=== PATIENT | female | born 1960 | race Caucasian/White ===

== ENCOUNTER 2022-04-08 08:14 | Emergency (ER) | payer OTHER, SELFPAY ==
[2022-04-08 08:16] VITALS: BP 139/73; PULSE 108; RESP 17; TEMP 37; O2SAT 99; BMI 23.3
--- NOTE | 2022-04-08 08:59 | EDS_ITS ---
HPI History of Present Illness Chief Complaint: Headache Informant: patient Onset/Context/Timing Onset: Days (3-4) Context: Gradual Timing: Continuous Quality -Headache: Positive for Similar Prior Headaches and Other (Pressure) Location: Generalized Worsened by: Laying flat, coughing, vomiting, noises Relieved by: Nothing Associated Symptoms/Injury Associated Symptoms: Positive for Nausea, Vomiting and Photophobia; Negative for Fever, Sore Throat, Sinus Pressure, Numbness, Tingling, Preceding Aura, Visual Changes, Blurred Vision or Visual Loss Narrative Narrative: Patient presents with headache that has been getting worse over the last 3 to 4 days. Patient states she has a AUTO RENTAL CLERK shunt in place. Patient states her headache feels like there is increasing pressure in her head. Patient states it is generalized. Patient states it is worse with laying flat, coughing, vomiting, and loud noises. Patient also admits to some mild photophobia. Patient admits to some nausea and vomiting. Patient denies any visual changes. Patient admits to some subjective chills but denies any fevers. Patient states that her neurosurgeon (Dr. Bramblia) has retired and she no longer has a neurosurgeon. Patient was seeing her neurosurgeon at [facility] in [place]. [facility] Medical History (Updated 04/08/22 @ 11:[address] Xavier Quintero DO) Asthma Breast cancer Cuca's thyroiditis Hypertension Home Medications levothyroxine 100 mcg tablet tab 04/08/22 [History Last Taken Unknown] levothyroxine 88 mcg tablet tab 04/08/22 [History Last Taken Unknown] lisinopril 10 mg tablet tab 04/08/22 [History Last Taken Unknown] montelukast 10 mg tablet tab 04/08/22 [History Last Taken Unknown] Allergy/AdvReac Type Severity Reaction Status Date / Time adhesive tape Allergy Rash Verified 04/08/22 08:15 Sulfa (Sulfonamide Allergy Rash Verified 04/08/22 08:15 Antibiotics) Surgical History (Updated 04/08/22 @ 11:[address] Xavier Quintero DO) History of hysterectomy S/P AUTO RENTAL CLERK shunt Social History Smoking Status: Never smoker ROS ROS ED Constitutional Constitutional ED: Reports chills and subjective; Denies fever(s) Eyes Eyes: Denies blurry vision or change in vision ENT ENT ED: Denies rhinorrhea or sore throat Cardiovascular Cardiovascular: Denies chest pain or palpitations Respiratory/Chest Respiratory/Chest: Denies cough or dyspnea Gastrointestinal Gastrointestinal: Reports nausea and vomiting Genitourinary Genitourinary ED: Denies dysuria or hematuria Musculoskeletal Musculoskeletal: Reports neck pain; Denies back pain Integumentary Denies abscess or rash Neurologic Neurologic: Reports headache(s); Denies weakness Allergic/Immunologic Allergic/Immunologic ED: Denies mouth swelling or urticaria EXAM Physical Exam Const Vital Signs: 04/08/22 08:16 04/08/22 10:04 04/08/22 11:50 Temperature 98.6 F Temperature Source Temporal Pulse Rate 108 H 95 101 H Respiratory Rate 17 14 14 Blood Pressure 139/73 H 132/70 H 125/70 H Blood Pressure Mean 95 90 88 Pulse Ox 99 97 98 Oxygen Delivery Method Room Air Room Air Room Air Positive well nourished and well developed General Appearance ED: well developed and NAD HEENT Reports moist mucous membranes atraumatic Eyes PERRL and EOMs intact bilaterally Neck supple and no JVD Resp normal respiratory effort and clear to auscultation bilaterally Cardio regular rate, regular rhythm and no murmurs GI normal to inspection, nondistended, normoactive bowel sounds and non-tender Palpation: soft Extremity normal to inspection General Extremety ED: Negative for edema or tenderness General Extremity: Negative for edema Neuro oriented x3, CN's II-XII intact bilaterally and no sensory deficits noted Sensorium / Orientation: alert Motor Exam: strength 5/5 throughout Psych mental status grossly normal Skin no rashes or lesions noted MDM MDM MDM Narrative Medical decision making narrative: CT scan of the brain was obtained. There is no acute intracranial abnormality. AUTO RENTAL CLERK shunt is in place. Ventricles are not dilated. This was interpreted by the radiologist and reviewed by myself. Patient was given IV fluids, morphine, and Zofran initially. Patient states she still has a headache after this. Patient was given Reglan and Benadryl. CBC was within normal limits. PT with INR and PTT were normal. Comprehensive metabolic profile was essentially within normal limits. COVID-19 rapid antigen was obtained and was negative. Urinalysis does not show any evidence of urinary tract infection. Patient is feeling somewhat better on reevaluation. Patient states her headache is still worse with movement. Patient was advised of her findings. Patient was instructed to rest in a dark quiet room. Patient was instructed to drink plenty of fluids. Patient was instructed to follow-up with her primary care physician in 5 to 7 days. Patient was also instructed to follow-up with a neurosurgeon in 1 to 2 weeks to establish care with a new neurosurgeon. Patient understands and is agreeable with the plan. All questions were answered. Lab Data Attestation: I reviewed the patient's lab results. Labs: Laboratory Results - last 24 hr 04/08/22 04/08/22 04/08/22 08:28 08:28 08:28 WBC 7.7 RBC 4.54 Hgb 14.1 Hct 42.9 MCV 94.5 MCH 31.1 MCHC 32.9 RDW Std Deviation 43.9 RDW Coeff of Julien 12.7 Plt Count 224 MPV 10.5 Immature Gran % (Auto) 0.400 Neut % (Auto) 85.9 H Lymph % (Auto) 7.8 L [place] % (Auto) 5.3 Eos % (Auto) 0.1 Baso % (Auto) 0.5 Absolute Neuts (auto) 6.6 Absolute Lymphs (auto) 0.60 L Nucleated RBC % 0 PT 13.2 INR 1.0 APTT 25.4 Sodium 136 Potassium 3.9 Chloride 103 Carbon Dioxide 27.0 Anion Gap 6 BUN 10 Creatinine 0.82 Estim Creat Clear Calc 62.21 Est GFR (MDRD) Af Amer 91 Est GFR (MDRD) Non-Af 75 BUN/Creatinine Ratio 12.2 Glucose 119 H Calcium 9.4 Total Bilirubin 0.50 AST 46 H ALT 84 H Alkaline Phosphatase 114 Total Protein 7.5 Albumin 4.0 Globulin 3.5 Albumin/Globulin Ratio 1.1 Urine Color Urine Clarity Urine pH Ur Specific [place] Urine Protein Urine Glucose (UA) Urine Ketones Urine Occult Blood Urine Nitrite Urine Bilirubin Urine Urobilinogen Ur Leukocyte Esterase Urine RBC Urine WBC Ur Squamous Epith Cells Urine Bacteria Urine Mucus 04/08/22 10:45 WBC RBC Hgb Hct MCV MCH MCHC RDW Std Deviation RDW Coeff of Julien Plt Count MPV Immature Gran % (Auto) Neut % (Auto) Lymph % (Auto) [place] % (Auto) Eos % (Auto) Baso % (Auto) Absolute Neuts (auto) Absolute Lymphs (auto) Nucleated RBC % PT INR APTT Sodium Potassium Chloride Carbon Dioxide Anion Gap BUN Creatinine Estim Creat Clear Calc Est GFR (MDRD) Af Amer Est GFR (MDRD) Non-Af BUN/Creatinine Ratio Glucose Calcium Total Bilirubin AST ALT Alkaline Phosphatase Total Protein Albumin Globulin Albumin/Globulin Ratio Urine Color Straw Urine Clarity Clear Urine pH 6.0 Ur Specific [place] 1.010 Urine Protein Negative Urine Glucose (UA) Normal Urine Ketones 15 H Urine Occult Blood 25 H Urine Nitrite Negative Urine Bilirubin Negative Urine Urobilinogen Normal Ur Leukocyte Esterase Negative Urine RBC 0 SEEN Urine WBC 0 SEEN Ur Squamous Epith Cells 0-5 SEEN Urine Bacteria 0 SEEN Urine Mucus 0 SEEN Radiography Diagnostic Testing: Clinical Impression(s) from Imaging Studies Brain CT 04/08/22 09:06 IMPRESSION: Ventriculoperitoneal shunt tube in situ with the tip in the anterior horn of the left lateral ventricle. No other abnormality is seen. Electronically Signed: Gavin Floyd MD at 9:40 EDT , Discharge Plan Triage Chief Complaint: Headache ED Provider: Xavier Quintero Dx/Rx/DC Orders Clinical Impression: Headache, S/P AUTO RENTAL CLERK shunt Instructions: ED Headache Unspecified Prescriptions: No Action levothyroxine 100 mcg tablet Label Comments: Take 1 Tablet BY MOUTH once daily- Monday and Monday levothyroxine 88 mcg tablet Label Comments: Take 1 Tablet BY MOUTH once daily on , MONDAY, MONDAY, MONDAY, MONDAY lisinopril 10 mg tablet Label Comments: TAKE 1 TABLET BY MOUTH ONCE DAILY montelukast 10 mg tablet Label Comments: TAKE 1 TABLET BY MOUTH ONCE DAILY Primary Care Provider: Alison Kim NP Referrals: Pee Pedersen MD [NON-STAFF] - 1-2 Weeks Alison Kim NP, PHOTOGRAPHIC PROCESS SCREEN [employer]KER[employer] [Primary Care Provider] - 3-5 Days Disposition Disposition: Home, Self Care
--- NOTE | 2022-04-08 09:06 | CT_ITS ---
STUDY: CT BRAIN WITHOUT CONTRAST REASON FOR EXAM: Female, 61 years old. 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 Individualized dose optimization techniques were used for this CT. COMPARISON: No relevant priors. FINDINGS: A right-sided ventriculoperitoneal shunt is seen with the tip in the anterior horn of the left lateral ventricle. Normal soft tissue structures. Normal calvarium. Normal size ventricles and extra-axial spaces for the patient''s age. Normal white matter tracts of the cerebral hemispheres. Normal basal ganglia and thalami. Normal brainstem. Normal cerebellum. There is no intracranial hemorrhage. There are no findings of an acute ischemic infarction. Minimal mucosal thickening at the base of the maxillary sinuses bilaterally. CT/Brain/Head without Contrast IMPRESSION: Ventriculoperitoneal shunt tube in situ with the tip in the anterior horn of the left lateral ventricle. No other abnormality is seen. Electronically Signed: Gavin Floyd MD at 9:40 EDT ,
[2022-04-08] MEDS: Morphine 4 MG/ML Syringe IV (09:22)
[2022-04-08] MEDS: Ondansetron 4 MG/2 ML Vial IV (09:22)
[2022-04-08] MEDS: 0.9% Normal Saline 1,000 ML 1000 ML IV (09:22)
[2022-04-08 09:23] LABS: Absolute Neutrophil Count 6.6 X10^3/uL (2.0-7.7); Basophil# 0.04 X10^3/uL; Basophil% 0.5 % (0-1); Eosinophil# 0.01 X10^3/uL; Eosinophils% 0.1 % (0-5); Hematocrit 42.9 % (37-47); Hemoglobin 14.1 g/dL (12.0-15.0); Lymphocyte % 7.8 % (19-41); Mean Corp Hgb Conc 32.9 g/dL (32-36); Mean Corpuscular Hgb 31.1 pg (27.0-32.0); Mean Corpuscular Volume 94.5 fL (81-99); Mean Platelet Vol. 10.5 fl (6.2-12.0); Monocyte# 0.41 X10^3/uL; Monocyte% 5.3 % (0-10); NRBC Flagged by Analyzer 0 % (0-5); Neutrophil # 6.62 X10^3/uL (2.7-7.7); Neutrophil % 85.9 % (47-70); POSITIVE DIFFERENTIAL YES; Platelet Count 224 K/mm3 (150-450); RBC Distribution Width CV 12.7 % (11.6-14.6); RBC Distribution Width SD 43.9 fl (35.1-43.9); Red Blood Count 4.54 M/mm3 (4.2-5.4); White Blood Count 7.7 K/mm3 (4.4-11.0)
[2022-04-08 09:33] LABS: Partial Thromboplast Time 25.4 Seconds (24.1-36.2); Prothrombin Time (Protime)PT. 13.2 SECONDS (11.7-14.9)
[2022-04-08 09:40] LABS: ALB/GLOB Ratio 1.1 RATIO (0.9-2.4); AST(SGOT) 46 U/L (15-37); Alanine Aminotransfer ALT/SGPT 84 U/L (13-56); Alkaline Phosphatase 114 U/L (45-117); Anion Gap 6 (5-15); BUN 10 mg/dL (7-18); BUN/Creat Ratio 12.2 RATIO (10-20); Calcium,Total 9.4 mg/dL (8.5-10.1); Chloride 103 mmol/L (98-107); Creatinine, Serum 0.82 mg/dL (0.55-1.02); EST Glomerular Filtration Rate 75 mL/min (>60); Est Glom Filt Rate - Afr Amer 91 mL/min (>60); Estimated Creatinine Clearance 62.21 ml/min; Globulin 3.5 g/dL (2.2-4.2); Glucose 119 mg/dL (74-106); Potassium 3.9 mmol/L (3.5-5.1); Protein, Total 7.5 g/dL (6.4-8.2); Sodium Level 136 mmol/L (136-145)
[2022-04-08 09:45] LABS: Differential Indicated SCAN CRITERIA MET
[2022-04-08 10:04] VITALS: BP 132/70; PULSE 95; RESP 14; O2SAT 97
[2022-04-08] MEDS: DiphenhydrAMINE 50 MG/ML Syringe 25 MG IV (10:44)
[2022-04-08] MEDS: Metoclopramide 10 MG/2 ML Vial IV (10:44)
[2022-04-08 10:53] LABS: Bacteria 0 SEEN /hpf (None Seen); Mucous, Urine 0 SEEN /hpf (<or=2+); Red Blood Cells-Urine 0 SEEN /hpf (0-5); White Blood Cells 0 SEEN /hpf (0-5)
[2022-04-08 10:56] LABS: Glucose, Dipstick Normal (Normal); Ketone-Dipstick 15 mg/dl (Negative); Leukocyte Esterase-Dipstick Negative /ul (Negative); Nitrite-Dipstick Negative (Negative); Occult Blood-Urine 25 /ul (Negative); Protein-Dipstick Negative (Negative); Urine Bilirubin Dipstick Negative (Negative); Urine Urobilinogen Normal (Normal)
[2022-04-08 11:06] LABS: Color, Urine Straw (Yellow); Urine Clarity Clear (Clear)
[2022-04-08 11:40] LABS: Squamous Epithelial Cells - UA 0-5 SEEN /hpf (5-10)
[2022-04-08 11:50] VITALS: BP 125/70; PULSE 101; RESP 14; O2SAT 98
== END 2022-04-08 12:12 | disposition home or self-care (01) ==
PROVIDERS: Emergency Provider Emergency Medicine; PCP Nurse Practitioner Family; Visit Provider Emergency Medicine
DX: R51.9 Headache, unspecified (principal); R11.2 Nausea with vomiting, unspecified; I10 Essential (primary) hypertension; Z98.2 Presence of cerebrospinal fluid drainage device; Z85.3 Personal history of malignant neoplasm of breast; J45.909 Unspecified asthma, uncomplicated; E06.3 Autoimmune thyroiditis; Z79.899 Other long term (current) drug therapy
CPT/HCPCS: 70450; 80053; 81001; 85025; 85610; 85730; 87040; 87811; 96361; 96374; 96375; 99283; J7030; A4216; J2405

== ENCOUNTER → 2023-03-01 | Outpatient (CLI) | payer OTHER, SELFPAY ==
[2023-03-01 10:47] LABS: Hematocrit 43.2 % (37-47); Hemoglobin 13.8 g/dL (12.0-15.0); Mean Corp Hgb Conc 31.9 g/dL (32-36); Mean Corpuscular Hgb 31.3 pg (27.0-32.0); Mean Platelet Vol. 11.1 fl (6.2-12.0); Platelet Count 267 K/mm3 (150-450); RBC Distribution Width CV 12.7 % (11.6-14.6); RBC Distribution Width SD 45.8 fl (35.1-43.9); Red Blood Count 4.41 M/mm3 (4.2-5.4); White Blood Count 6.9 K/mm3 (4.4-11.0)
[2023-03-01 11:36] LABS: ALB/GLOB Ratio 1.2 RATIO (0.9-2.4); AST(SGOT) 26 U/L (15-37); Alanine Aminotransfer ALT/SGPT 42 U/L (13-56); Albumin, Serum 3.9 g/dL (3.2-5.0); Alkaline Phosphatase 95 U/L (45-117); Anion Gap 4 (5-15); BUN 20 mg/dL (7-18); BUN/Creat Ratio 24.5 RATIO (10-20); Calcium,Total 9.3 mg/dL (8.5-10.1); Chloride 107 mmol/L (98-107); Creatinine, Serum 0.82 mg/dL (0.55-1.02); EST Glomerular Filtration Rate 75 mL/min (>60); Est Glom Filt Rate - Afr Amer 91 mL/min (>60); Globulin 3.2 g/dL (2.2-4.2); Glucose 97 mg/dL (74-106); Potassium 4.7 mmol/L (3.5-5.1); Protein, Total 7.1 g/dL (6.4-8.2); Sodium Level 139 mmol/L (136-145); T4 Free Direct 0.97 ng/dL (0.76-1.46); Thyroid Stim Hormone (TSH) 0.51 uIU/mL (0.358-3.74)
[2023-03-02 07:27] LABS: Cholesterol 313 mg/dL (200); High Density Lipoprotein 53 mg/dL; Triglycerides 277 mg/dL; Very Low Density Lipoprotein 55 mg/dL (5-40)
== END | disposition home or self-care (01) ==
LOC: LAB 09:26
PROVIDERS: PCP Nurse Practitioner Family; Visit Provider Nurse Practitioner Family
DX: Z00.00 Encounter for general adult medical examination without abnormal findings (principal); E03.2 Hypothyroidism due to medicaments and other exogenous substances
CPT/HCPCS: 36415; 80053; 80061; 84439; 84443; 85027

== ENCOUNTER → 2023-06-01 | Outpatient (CLI) | payer OTHER, SELFPAY ==
[2023-06-01 09:46] LABS: Hematocrit 41.8 % (37-47); Hemoglobin 13.6 g/dL (12.0-15.0); Mean Corp Hgb Conc 32.5 g/dL (32-36); Mean Corpuscular Hgb 31.8 pg (27.0-32.0); Mean Corpuscular Volume 97.7 fL (81-99); Platelet Count 270 K/mm3 (150-450); RBC Distribution Width CV 12.7 % (11.6-14.6); RBC Distribution Width SD 46.5 fl (35.1-43.9); Red Blood Count 4.28 M/mm3 (4.2-5.4); White Blood Count 6.4 K/mm3 (4.4-11.0)
[2023-06-01 11:01] LABS: ALB/GLOB Ratio 1.4 RATIO (0.9-2.4); AST(SGOT) 17 U/L (15-37); Alanine Aminotransfer ALT/SGPT 36 U/L (13-56); Albumin, Serum 4.3 g/dL (3.2-5.0); Alkaline Phosphatase 89 U/L (45-117); Anion Gap 5 (5-15); BUN 15 mg/dL (7-18); BUN/Creat Ratio 17.8 RATIO (10-20); Calcium,Total 9.5 mg/dL (8.5-10.1); Chloride 107 mmol/L (98-107); Cholesterol 196 mg/dL (200); Creatinine, Serum 0.84 mg/dL (0.55-1.02); EST Glomerular Filtration Rate 73 mL/min (>60); Est Glom Filt Rate - Afr Amer 88 mL/min (>60); Globulin 3.1 g/dL (2.2-4.2); Glucose 103 mg/dL (74-106); High Density Lipoprotein 64 mg/dL; Potassium 4.6 mmol/L (3.5-5.1); Protein, Total 7.4 g/dL (6.4-8.2); Sodium Level 140 mmol/L (136-145); T4 Free Direct 1.17 ng/dL (0.76-1.46); Thyroid Stim Hormone (TSH) 0.15 uIU/mL (0.358-3.74); Triglycerides 99 mg/dL; Very Low Density Lipoprotein 20 mg/dL (5-40)
== END | disposition home or self-care (01) ==
LOC: LAB 08:24
PROVIDERS: PCP Nurse Practitioner Family; Referring Provider Nurse Practitioner Family; Visit Provider Nurse Practitioner Family
DX: E78.5 Hyperlipidemia, unspecified (principal); E03.2 Hypothyroidism due to medicaments and other exogenous substances; R06.02 Shortness of breath; R10.9 Unspecified abdominal pain; R35.0 Frequency of micturition
CPT/HCPCS: 36415; 80053; 80061; 84439; 84443; 85027; 87086

== ENCOUNTER → 2023-06-14 | Outpatient (CLI) | payer OTHER, SELFPAY ==
--- NOTE | 2023-06-14 10:39 | ECHOD_ITS ---
Reason For Study: SOB Procedure This was a 2D Doppler, Color Flow transthoracic echocardiogram. Exam performed in department. Left Ventricle Normal LV size. Left ventricular systolic function is normal. The estimated ejection fraction is 60 %. Stage 1 diastolic dysfunction. No regional wall motion abnormalities noted. Right Ventricle Normal RV size. Normal systolic function. Atria Normal left atrium. Normal right atrium. Mitral Valve Normal mitral valve. Tricuspid Valve Normal tricuspid valve. Aortic Valve Normal aortic valve. Trisinus/trileaflet aortic valve. Pulmonic Valve Normal pulmonic valve. Great Vessels Normal aortic root. The pulmonary artery is normal size. Inferior vena cava collapse with respiration. Pericardium/Pleural No pericardial effusion. MMode/2D Measurements & Calculations LVIDd: 3.5 cm IVSd: 1.0 cm LAV(MOD-bp): 29.6 ml LVIDs: 2.7 cm LVPWd: 1.1 cm LAV(MOD-bp) Indexed: 17.6 ml/m2 RVDd: 2.6 cm FS: 22.1 % LAV(MOD-sp2): 28.3 ml LAV(MOD-sp4): 27.9 ml SV(MOD-sp4): 30.8 ml SV(sp4-el): 33.6 ml LVAd ap4: 21.5 cm2 LVLd ap4: 7.0 cm EDV(MOD-sp4): 53.5 ml EDV(sp4-el): 56.2 ml LVAs ap4: 12.6 cm2 LVLs ap4: 5.9 cm ESV(MOD-sp4): 22.7 ml ESV(sp4-el): 22.6 ml EF(MOD-sp4): 57.6 % EF(sp4-el): 59.7 % LA A4 area: 11.8 cm2 LA dimension(2D): 2.8 cm RA A4 area: 6.0 cm2 TAPSE: 1.9 cm Time Measurements MV dec time: 0.22 sec Doppler Measurements & Calculations MV E max javan: 67.4 cm/sec Lat Peak E' Javan: 8.5 cm/sec Med Peak E' Javan: 6.0 cm/sec MV A max javan: 69.7 cm/sec E/E' lat: 8.0 E/E' med: 11.3 MV E/A: 0.97 MV V2 max: 76.0 cm/sec Ao V2 max: 176.5 cm/sec MV max P.3 mmHg MV dec slope: 317.7 cm/sec2 Ao max P.5 mmHg MV V2 mean: 54.1 cm/sec Ao V2 mean: 112.5 cm/sec MV mean P.3 mmHg Ao mean P.8 mmHg MV V2 VTI: 23.7 cm Ao V2 VTI: 35.5 cm AV (velocity ratio): 0.70 LV V1 max: 120.7 cm/sec PA V2 max: 114.2 cm/sec LV V1 max P.8 mmHg PA V2 mean: 75.5 cm/sec LV V1 mean P.4 mmHg LV V1 mean: 87.8 cm/sec LV V1 VTI: 25.0 cm ECHO/Echo Complete Interpretation Summary Normal LV size. Left ventricular systolic function is normal. The estimated ejection fraction is 60 %. Stage 1 diastolic dysfunction. Structurally normal valves. Ordering Physician: Alison Kim Referring Physician: Alison Kim Performed By: Bonnie King RCS
--- NOTE | 2023-06-14 10:40 | EKG12_ITS ---
Test Reason : TVANSCYOC Blood Pressure : / mmHG Vent. Rate : 072 BPM Atrial Rate : 072 BPM P-R Int : 158 ms QRS Dur : 076 ms QT Int : 376 ms P-R-T Axes : 064 063 053 degrees QTc Int : 411 ms Normal sinus rhythm Normal ECG Confirmed by SOPHIE MCDERMOTT, SETH ([id number]), editor continuity and script MANUELITO ORTIZ ([id number]) on 06/16/2023 2:38:31 PM Referred By: Alison Kim Confirmed By:SETH BARRIOS MD
--- NOTE | 2023-06-14 19:12 | STRESSREP ---
Stress Test Report Exercise stress test. 62-year-old lady with a history of chest pain Stress protocol: Resting EKG demonstrates normal sinus rhythm with a rate of 72 bpm resting blood pressure is 122/72 mmHg. The patient exercised according to the regular Vinayak protocol for a total duration of 9 minutes and 30 seconds attaining a maximum heart rate of 169 bpm which was 106% of maximum predicted heart rate; the maximum workload was 11.7 metabolic equivalents. At rest there were no ST or T wave changes noted to suggest ischemia and at peak exercise upsloping ST changes only were noted which did not meet the criteria for ischemia. No clinical angina was noted the test was terminated due to the target heart rate being achieved/fatigue. The peak blood pressure was 182/68 mmHg. Rate-pressure product was 30,200. Conclusion: Normal exercise stress test with no EKG criteria or arrhythmias noted at a high workload. No angina present
== END | disposition home or self-care (01) ==
LOC: PSN 10:32
PROVIDERS: PCP Nurse Practitioner Family; Referring Provider Nurse Practitioner Family; Visit Provider Nurse Practitioner Family
DX: R01.1 Cardiac murmur, unspecified (principal); R06.02 Shortness of breath; R07.9 Chest pain, unspecified; I10 Essential (primary) hypertension; R53.83 Other fatigue; E78.5 Hyperlipidemia, unspecified; E03.2 Hypothyroidism due to medicaments and other exogenous substances; Z85.3 Personal history of malignant neoplasm of breast; R31.29 Other microscopic hematuria; R35.0 Frequency of micturition
CPT/HCPCS: 93005; 93017; 93306

== ENCOUNTER → 2023-06-15 | Outpatient (CLI) | payer OTHER, SELFPAY ==
--- NOTE | 2023-06-15 14:22 | CT_ITS ---
STUDY: CT ABDOMEN AND PELVIS WITH CONTRAST REASON FOR EXAM: Female, 62 years old. R FLANK PAIN RADIATION DOSAGE (If Supplied By Facility): CTDIvol = ( 10.92 ) mGy, DLP = ( 450.80 ) mGycm TECHNIQUE: Oral and intravenous injection of 100mL Isovue-300 was administered. Transaxial images were obtained from the dome of the diaphragm to the symphysis pubis. Multiplanar coronal and sagittal images were reformatted. Individualized Dose Optimization Techniques Were Used For This CT. COMPARISON: No relevant prior comparison study available FINDINGS: The visualized lung bases are unremarkable. The visualized portions of the heart are within normal limits. Catheter extending from the anterior lower chest to the right side of the abdominal cavity likely due to ventriculoperitoneal shunt not adequately evaluated on this exam. There is another similar catheter on the left side of the lower abdomen not definitely connected with the first catheter. Normal liver. Normal gallbladder and extrahepatic biliary system. Normal spleen. Normal pancreas. Normal bilateral adrenal glands. 6 mm simple cyst in the lower pole of the right kidney. No evidence of hydronephrosis. Normal visualized stomach. Normal in caliber small bowel loops. Fecal retention. The cecum and proximal ascending colon is redundant. The appendix appears to be sure without inflammatory changes. No evidence of abdominal aortic aneurysm. No retroperitoneal adenopathy. Normal urinary bladder. Normal abdominal wall. Degenerative changes at the level of L4-L5. CT/Abdomen/Pelvis WITH Contrast IMPRESSION: 1. No evidence of urinary tract stones or hydronephrosis. 2. No focal acute inflammatory process. 3. Probable ventriculoperitoneal shunt extending to the right side of the abdomen with second catheter on the left side of the lower abdomen. The 2 catheters are not definitely connected. Discontinuity of the shunt cannot be excluded. Electronically Signed: Rico Reaves MD at 15:15 EDT ,
== END | disposition home or self-care (01) ==
LOC: CT 14:07
PROVIDERS: PCP Nurse Practitioner Family; Referring Provider Nurse Practitioner Family; Visit Provider Nurse Practitioner Family
DX: R39.15 Urgency of urination (principal); R10.9 Unspecified abdominal pain; R07.9 Chest pain, unspecified; R35.0 Frequency of micturition; R53.83 Other fatigue; Z85.3 Personal history of malignant neoplasm of breast
CPT/HCPCS: 74177; Q9967

== ENCOUNTER → 2023-06-29 | Outpatient (CLI) | payer OTHER, SELFPAY ==
--- NOTE | 2023-06-29 09:08 | RAD_ITS ---
STUDY: X-RAY CHEST REASON FOR EXAM: Female, 63 years old. Chest pain. TECHNIQUE: Frontal and lateral views of the chest. COMPARISON: None. FINDINGS: Mild hyperinflation with scattered healed granulomatous calcifications. There is no demonstrated pleural abnormality. Normal size heart. Normal mediastinum and keon. Normal visualized pulmonary arteries. Normal visualized aortic arch and descending thoracic aorta. Normal visualized thoracic spine. Normal visualized ribs, clavicles, and shoulders. Catheter projected over the right side of the neck and extending to the upper right chest No abnormality of the visualized soft tissue structures of the upper abdomen. RAD/Chest PA and Lateral IMPRESSION: Hyperinflation with granulomatous calcifications. No active or acute cardiopulmonary disease. Electronically Signed: Jeremie Dia MD at 9:48 EDT ,
--- NOTE | 2023-06-29 09:08 | RAD_ITS ---
STUDY: X-RAY - LEFT SHOULDER REASON FOR EXAM: Female, 63 years old. Left shoulder pain. TECHNIQUE: 4 view(s) of the shoulder. COMPARISON: None. FINDINGS: Normal glenohumeral articulation. Mild arthrosis of the acromioclavicular joint. Normal acromion. Normal humeral head and visualized proximal humerus. Normal soft tissues. Normal visualized pulmonary apex. RAD/Shoulder min 2 Views IMPRESSION: Mild arthrosis of the AC joint. No other abnormality Electronically Signed: Jeremie Dia MD at 9:50 EDT ,
[2023-06-30 13:07] LABS: Lyme Scn Total Ab w/Rflx Negative (Negative)
== END | disposition home or self-care (01) ==
LOC: LAB 08:51
PROVIDERS: PCP Nurse Practitioner Family; Referring Provider Nurse Practitioner Family; Visit Provider Nurse Practitioner Family
DX: R07.9 Chest pain, unspecified (principal); M25.512 Pain in left shoulder; W57.XXXA Bitten or stung by nonvenomous insect and other nonvenomous arthropods, initial encounter
CPT/HCPCS: 36415; 71046; 73030; 86618